=== PATIENT | male | born 1975 | race Caucasian/White ===

== ENCOUNTER → 2017-09-29 18:26 | Outpatient (CLI) | payer MEDICAID ==
[~2017-09-29 18:26] MED LIST: MOBIC7.5 MG PO; PRINIVIL20 MG PO; ZYRTEC10 MG PO
[2017-09-29 20:53] LABS: CHOL - HDL RATIO 2.6 ratio (2.3-4.9); LDL-HDL RATIO 1.3 ratio (1.5-3.5)
[2017-10-26 07:31] VITALS: BMI 25.8
== END | disposition home or self-care (01) ==
LOC: D.LABREF 18:26
PROVIDERS: Internal Medicine Cardiovascular Disease
DX: R07.9 Chest pain, unspecified (principal); I10 Essential (primary) hypertension; R06.00 Dyspnea, unspecified; R00.2 Palpitations

== ENCOUNTER → 2017-10-14 10:02 | Outpatient (CLI) | payer MEDICAID ==
--- NOTE | ~2017-10-14 | EC ---
PATIENT:DC FARAH DATE OF SERVICE: 10/14/17 SEX: M MEDICAL RECORD: [id number] DATE OF : 73 LOCATION:[facility] AGE OF PATIENT: 42 ADMISSION DATE: 10/14/17 REFERRING PHYSICIAN: INTERPRETING PHYSICIAN: SCARLET SMITH MD ECHOCARDIOGRAM REPORT ECHO CHARGES 4 ECHO COMPLETE Date: 10/14 CLINICAL DIAGNOSIS: CHEST PAIN,PALPITATIONS/HTN ECHOCARDIOGRAPHIC MEASUREMENTS (adult normal given) AC root (d.<3.7cm) 3.8 cm LV Septum d (<1.2 cm> 1.4 cm Valve Excursion 1.8 cm LV Septum (systole) 1.6 cm Left Atria (s.<4.0cm> 3.1 cm LVPW d(<1.2cm) 1.3 cm RV (d.<2.3cm) 3.9 cm LVPW (sytole) 1.5 cm LV diastole(<5.6CM) 4.1 cm MV E-F(>70mm/sec) cm LV systole 2.3 cm LVOT Diameter 1.7 cm MV exc.(>10mm) 1.4 cm Est.ejection fraction (50-75%) % DOPPLER: LVIT cm/sec A 81.0 cm/sec E 93.0 cm/sec LA cm/sec RVSP 29 mmHg LVOT 110 cm/sec AOP1/2T m/s Asc. Ao 175 cm/sec RVOT 94 cm/sec RA cm/sec PA 140 cm/sec AV Gradient Peak 12.25mmHg AV Mean 7.21 mmHg AV Area 1.5 cm MV Gradient Peak 4.02 mmHg MV Mean 1.66 mmHg MV Area cm COMMENTS: Lithographed Plate Inspector: 2 BRANDON GALINDO Bilingual Student Tutor: 4 Dr. Smith TAPE# PACS Pericardial Effusion N DATE OF SERVICE: PROCEDURE: Transthoracic echocardiogram. FINDINGS: 1. Left ventricle shows evidence of left ventricular hypertrophy that is mild. Inflow characteristics are normal to possibly pseudonormal. 2. The ejection fraction is 65%. 3. Left atrium is normal size, normal function. 4. The aortic valve is normal. ECHOCARDIOGRAM REPORT [id number] DC FARAH 5. The right ventricle is normal. 6. The right atrium is normal. 7. The mitral valve is normal. 8. The tricuspid valve is normal. 9. The pericardium is normal. 10. The pulmonic valve is normal. CONCLUSIONS: The patient has evidence of mild left ventricular hypertrophy, but otherwise normal echocardiogram for age. TRANSINT:[id number] Voice Confirmation ID: [id number] DOCUMENT ID: [id number] SCARLET SMITH MD at 0942 CC: [id number] DICTATION DATE: 10/14/17 1131 PEDIATRIC LPN: 10/14/17 1223 DEP CLI 10/14/17 [id number] [place] [address]
[2017-10-26 07:31] VITALS: BMI 25.8
== END | disposition home or self-care (01) ==
LOC: D.ECHO 09-22 13:30
DX: R07.9 Chest pain, unspecified (principal); R00.2 Palpitations; I10 Essential (primary) hypertension

== ENCOUNTER 2017-10-26 07:00 | Outpatient (CLI) | payer MEDICAID ==
[~2017-10-26] VITALS: Ht 162.6 cm; Wt 68.2 kg
--- NOTE | ~2017-10-26 | HEMODYNAMI ---
PATIENT:DC FARAH MEDICAL RECORD: [id number] : 73 LOCATION:[facility] ADMISSION DATE: 10/26/17 Generatedon:10/26/201712:15 Patient name: DC FARAH Patient #: [id number] SSN: DO B: 1975 Date of study: 10/26/2017 Page: Of Hemodynamic Procedure Report Patient Data Patient Demographics Procedure consent was obtained First Name: DC Gender: Male Last Name: GAGAN : 1975 [facility] Initial: R Age: 42 year(s) Patient #: [id number] Race: Unknown Additional ID: [id number] Contact details Address: [address] [place] [address] [place] State: [place] City: [facility] Zip code: [address] Admission Admission Data Admission Date: 10/26/2017 Admission Time: 7:00 Lab Results Lab Result Date: 10/26/2017 Lab Result Time: 0:00 Biochemistry Name Units Result Min Max BUN mg/dl 17 --(---*)-- 7 18 Creatinine mg/dl 1 --(--*-)-- 0.6 1.3 CBC Name Units Result Min Max Hemoglobin g/dl 16.3 --(--*-)-- 13.5 17.5 Procedure Procedure Types Cath Procedure Diagnostic Procedure [facility] w/Coronaries Procedure Description Procedure Date Procedure Date: 10/26/2017 Procedure Start Time: 12:03 Procedure End Time: 12:13 Procedure Staff Name Function Fran Rosa MD Performing Physician Frederic Foley RT Monitor Kajal Beth RT Scrub Russ Lobo RN Nurse Procedure Data Cath Procedure Fluoroscopy Diagnostic fluoroscopy Total fluoroscopy Time: 4.2 time: 4.2 min min Diagnostic fluoroscopy Total fluoroscopy dose: 198 dose: 198 mGy mGy Contrast Material Contrast Material Type Amount (ml) Isovue 300 32 Entry Location Entry Primary Successful Side Size Upsize Upsize Entry Closure Skinner ccessful Closure Location (Fr) 1 (Fr) 2 (Fr) Remarks Device Remarks Radial Right 6 Fr Mechanical artery Short Compression Estimated blood loss: 10 ml Diagnostic catheters Device Type Used For End Catheter Placement DIAGNOSTIC Emilaino 110cm Procedure 5Fr catheter ([id number]) Procedure Complications No complications Procedure Medications Medication Administration Route Dosage Oxygen etCO2 Nasal cannula 2 l/min Heparin Flush Bag added to field 2 bags (1000units/500ml NS) 0.9% NaCl I.V. 100 ml/hr Radial Cocktail added to field 1 syringe (Verapomil 2mg/Nitro 400mcg/Heparin 1500units) Fentanyl I.V. 50 mcg Versed I.V. 1 mg Fentanyl I.V. 50 mcg Versed I.V. 1 mg Fentanyl I.V. 50 mcg Radial Cocktail I.A. 1 syringe (Verapomil 2mg/Nitro 400mcg/Heparin 1500units) Fentanyl I.V. 50 mcg Versed I.V. 1 mg Hemodynamics Rest HGB: 16.3 (g/dl) Heart Rate: 67 (bpm) Pressure Samples Time Site Value (mmHg) Purpose Heart Use Rate(bpm) 12:07 LV 124/-6,7 Snapshot 85 Gradients Valve Time Site Site Mean SEP/DFP Peak To Heart Use 1 2 (mmHg) (sec/min) Peak Rate (mmHg) (bpm) Aortic 12:08 LV AO 81 Snapshots Pre Cath Intra NCS Post Cath Vital Signs Time Heart Resp SPO2 etCO2 NIBP Rhythm Pain Sedation Rate (ipm) (%) (mmHg) (mmHg) Status Level (bpm) 11:52:08 63 16 98 0 131/79(95) NSR 0 (11) 10(A) , No pain 11:56:46 69 17 99 34.5 113/74(85) NSR 0 (11) 10(A) , No pain 12:01:23 72 16 96 34.5 110/60(84) NSR 0 (11) 10(A) , No pain 12:05:57 89 20 94 33.8 116/70(93) NSR 0 (11) 10(A) , No pain 12:10:34 87 17 94 36.8 104/67(83) NSR 0 (11) 9(A) , No pain 12:13:57 81 17 95 33.8 113/68(91) NSR 0 (11) 9(A) , No pain Medications Time Medication Route Dose Verified Delivered Reason Notes Effectiveness by by 11:54:06 Oxygen etCO2 2 l/min Fran Russ Per Nasal Moe Lobo RN physician cannula 11:54:15 Heparin Flush added 2 bags Fran Russ used for Bag to Moe Lobo RN procedure (1000units/500ml field NICHOLAS NS) 11:54:22 0.9% NaCl I.V. 100 Fran Russ Per ml/hr Moe Lobo RN physician 11:54:31 Radial Cocktail added 1 Fran Russ used for (Verapomil to syringe Moe Lobo RN procedure 2mg/Nitro field NICHOLAS 400mcg/Heparin 1500units) 11:55:48 Fentanyl I.V. 50 mcg Fran Russ for sedation Moe Lobo RN, MD 11:55:55 Versed I.V. 1 mg Fran Russ for sedation Moe Lobo RN, MD 11:58:32 Fentanyl I.V. 50 mcg Fran Russ for sedation Moe Lobo RN, MD 11:58:37 Versed I.V. 1 mg Fran Russ for sedation Moe Lobo RN, MD 12:02:05 Fentanyl I.V. 50 mcg Fran Russ for sedation Moe Lobo RN, MD 12:04:56 Radial Cocktail I.A. 1 Fran Fran for (Verapomil syringe Moe Rosa MD vasodilation 2mg/Nitro 400mcg/Heparin 1500units) 12:05:05 Fentanyl I.V. 50 mcg Fran Russ for sedation Moe Lobo RN, MD 12:08:13 Versed I.V. 1 mg Fran Russ for sedation Moe Lobo RN, MD Procedure Log Time Note 11:20:06 Russ Lobo RN sent for patient. Start room use. 11:36:54 Signed procedure consent form obtained from patient. 11:36:56 Time tracking: Regular hours (M-F 7:00 - 5:00) 11:37:01 Plan of Care:Hemodynamics will remain stable., Cardiac rhythm will remain stable., Comfort level will be maintained., Respiratory function will remain adequate., Patient/ family verbilizes understanding of procedure., Procedure tolerated without complication., Recovers from procedure without complications.. 11:37:19 H&P Date Dictated: 10/14/2017 Within 30 days and on chart., H&P Addendum completed by physician on day of procedure. (MUST COMPLETE FOR ALL OUTPATIENTS). 11::44 Lab Result : BUN 17 mg/dl : Lab Result : Creatinine 1 mg/dl : Lab Result : Hemoglobin 16.3 g/dl 11::38 Patient received from Pre/Post Procedure Room to CCL 1 Alert and oriented. Tansferred to table in Supine position. 11:43:39 Warm blankets applied, and patrick hugger turned on for patient comfort. 11::39 Correct patient and procedure confirmed by team. 11:43:40 ECG and BP/O2 sat monitors applied to patient. 11:51:21 Vital chart was started 11:54:06 Oxygen 2 l/min etCO2 Nasal cannula was administered by Russ Lobo RN; Per physician; 11:54:15 Heparin Flush Bag (1000units/500ml NS) 2 bags added to field was administered by Russ Lobo RN; used for procedure; 11:54:18 Baseline sample Acquired. 11:54:21 Rhythm: sinus rhythm 11:54:22 0.9% NaCl 100 ml/hr I.V. was administered by Russ Lobo RN; Per physician; 11:54:23 Full Disclosure recording started 11:54:24 Pre-procedure instructions explained to patient. 11:54:25 Pre-op teaching completed and patient verbalized understanding. 11:54:27 Family in patients room. 11:54:28 Patient NPO since Midnight. 11:54:30 Is the patient allergic to Iodine/contrast media? No. 11:54:31 Radial Cocktail (Verapomil 2mg/Nitro 400mcg/Heparin 1500units) 1 syringe added to field was administered by Russ Lobo RN; used for procedure; 11:54:32 Is patient on blood thinner?Yes 11:54:35 ACC The patient was administered the following blood thiners within the last 24 hours: ACCPlavix 11:54:38 Patient diabetic? No. 11:54:41 Previous problem with sedation/anesthesia? No ? 11:54:42 Snore? Yes 11:54:43 Sleep apnea? No 11:54:44 Deviated septum? No 11:54:45 Opens mouth fully? Yes 11:54:45 Sticks out tongue? Yes 11:54:47 Airway obstruction? No ? 11:54:53 Dentures? No Lost teeth 11:54:56 Pre procedure: right dorsailis pedis pulse 1+ Palpable, but thready & weak; easily obliterated 11:54:59 Modified Reji's test Ulnar < 7 seconds 11:55:00 Patient pain scale 0/10 ?. 11:55:08 IV patent on arrival in left forearm with 0.9% NaCl at O. 11:55:17 Lab results completed and on chart. 11:55:21 Right Radial & Right Groin area was prepped with chlora-prep and draped in sterile fashion 11:55:22 Alarms reviewed by R. N. 11:55:23 Sharps counted by scrub and verified by R.N. 11:55:24 --------ALL STOP TIME OUT------ 11:55:25 Final Timeout: patient, procedure, and site verified with staff and physician. All members of the team are in agreement. 11:55:27 Right Radial & Right Groin site verified by team. 11:55:31 Physical assessment completed. ASA score P 2 - A patient with mild systemic disease as per Fran Rosa MD. 11:55:34 Sedation plan: IV Moderate Sedation Medication:Versed, Fentanyl 11:55:48 Fentanyl 50 mcg I.V. was administered by Russ Lobo RN; for sedation; 11:55:55 Versed 1 mg I.V. was administered by Russ Lobo RN; for sedation; 11:58:32 Fentanyl 50 mcg I.V. was administered by Russ Lobo RN; for sedation; 11:58:37 Versed 1 mg I.V. was administered by Russ Lobo RN; for sedation; 11:59:32 Use device set Radial Dx or PCI 11:59:35 Tegaderm 4 x 4 (1626W) opened to sterile field. 11:59:36 ACIST Hand Control (69644) opened to sterile field. 11:59:36 ACIST Manifold (93573) opened to sterile field. 11:59:37 ACIST Syringe (21160) opened to sterile field. 11:59:38 Medline Cath Pack ([id number]) opened to sterile field. 11:59:38 Bag Decanter () opened to sterile field. 11:59:39 DIAGNOSTIC WIRE .035 260cm J wire (422528) opened to sterile field. 11:59:44 MBrace Wrist Support ([id number]) opened to sterile field. 12:02:05 Fentanyl 50 mcg I.V. was administered by Russ Lobo RN; for sedation; 12:02:57 SHEATH 6Fr Prelude Radial ([id number]) opened to sterile field. 12:03:38 Procedure started. 12:03:44 Local anesthetic to right radial artery with Lidocaine 2% by Fran Rosa MD.INITIAL ACCESS ONLY 12:04:07 A 6 Fr Short sheath was inserted into the Right Radial artery 12:04:42 A DIAGNOSTIC Emiliano 110cm 5Fr catheter ([id number]) was advanced over the wire and used for Procedure. 12:04:56 Radial Cocktail (Verapomil 2mg/Nitro 400mcg/Heparin 1500units) 1 syringe I.A. was administered by Fran Rosa MD; for vasodilation; 12:05:05 Fentanyl 50 mcg I.V. was administered by Russ Lobo RN; for sedation; 12:08:11 LV angiography performed. 12:08:13 Versed 1 mg I.V. was administered by Russ Lobo RN; for sedation; 12:08:13 LV gram done using ORELLANA 12:08:27 EF : 60 % 12:08:38 LV hemodynamics recorded. 12:08:44 Injector settings: Ml/sec: 12, Volume: 8, 12:08:52 RCA angiography performed. 12:11:18 LCA angiography performed. 12:12:06 Catheter removed. 12:12:11 TR BAND Standard ([id number]) opened to sterile field. 12:12:22 Sheath removed intact; hemostasis achieved with Mechanical Compression to the Right Radial artery. 12:12:30 Procedure ended.(Physican Out) 12:12:44 Fluoroscopy time 04.20 minutes. 12:12:53 Fluoroscopy dose: 198 mGy 12:12:53 Flurop Dose total: 198 12:12:58 Contrast amount:Isovue 300 32ml. 12:13:03 Sharps counted by scrub and verified by R.N. 12:13:06 TR band inflated with 10cc of air. 12:13:07 Insertion/operative site no bleeding no hematoma. 12:13:09 Post Procedure Pulses reassessed and unchanged 12:13:12 Post-procedure physical assessment completed. ASA score P 2 - A patient with mild systemic disease as per Fran Rosa MD. 12:13:17 Post procedure rhythm: unchanged. 12:13:20 Estimated blood loss: 10 ml 12:13:22 Post procedure instruction explained to patient.Patient verbalizes understanding. 12:13:22 Patient needs reinforcement of post procedure teaching. 12:13:26 Procedure and supply charges have been captured, reviewed, submitted and are correct. 12:13:30 Procedure Complication : No complications 12:13:46 Vital chart was stopped 12:13:46 See physician's report for complete and final results. 12:13:48 Report given to Pre/Post Procedure Room. 12:13:51 Patient transfered to Pre/Post Procedure Room with Stretcher. 12:13:55 Procedure ended. 12:13:55 Full Disclosure recording stopped 12:14:49 End room use (Document Last) Device Usage Item Name Manufacture Quantity Catalog Number Hospital Part Current M inimal Lot# / Charge Number Stock Stock Serial# Code Tegaderm 4 x 4 3M 1 [id number] 191989 380402 5 (1626W) ACIST Hand Acist 1 04258 409593 712411 762542 5 Control (06547) [employer] ACIST Manifold Acist 1 09296 456132 239600 657075 5 (85941) [employer] ACIST Syringe Acist 1 85643 833781 759107 611817 2 0 (76437) [employer] Medline Cath Cardinal 1 [id number] 484618 07560 718665 5 Pack Health ([id number]) Bag Decanter Microtek 1 2001S 792671 98532 771895 5 (2001S) Medical Inc. DIAGNOSTIC WIRE St Donnie 1 871582 552196 548001 838622 3 0 .035 260cm J wire (553095) MBrace Wrist Advanced 1 140-0250-00 564506 40830 569845 5 Support Vascular ([id number]) Dynamics SHEATH 6Fr Merit 1 [id number] 748999 639783 944419 5 Prelude Radial Medical ([id number]) DIAGNOSTIC Terumo 1 75-4515 744829 911893 104725 5 Emiliano 110cm 5Fr catheter (661169) TR BAND Terumo 1 [id number] 027470 246122 401544 4 0 Standard ([id number]) Signature Audit Marion Stage Time Signature Unsigned Intra-Procedure 10/26/2017 Frederic Foley 12:15:07 PM RT(R) Signatures Monitor : Frederic Foley RT Signature : Date : Time : [id number] [place] [address]
[2017-10-26] MEDS ORDERED: PRINIVIL20 MG PO (07:22)
[2017-10-26] MEDS ORDERED: ZYRTEC10 MG PO (07:22)
[2017-10-26] MEDS ORDERED: MOBIC7.5 MG PO (07:23)
[2017-10-26 07:31] VITALS: BP 142/84; Ht 162.6 cm; Wt 68.2 kg
[2017-10-26 07:40] LABS: BASOPHILS 0.5 % (0-2); EOSINOPHILS 4.4 % (0-7); HEMATOCRIT 47.2 % (42.0-54.0); HEMOGLOBIN 16.3 g/dL (13.5-17.5); IMMATURE GRANULOCYTES 0.3 % (0-5); LYMPHOCYTES 40.4 % (15-50); MCH 32.8 pg (26.0-34.0); MCHC 34.5 g/dL (31.0-37.0); MEAN PLATELET VOLUME 11.1 fL (7.4-10.4); MONOCYTES 11.6 % (2-11); NEUTROPHILS 42.8 % (40-80); PLATELET COUNT 193 10x3/uL (130-400); RBC 4.97 10x6/uL (4.20-6.10); RDW 13.4 % (11.5-14.5)
[2017-10-26 07:57] LABS: CALC OSMOLALITY 277 mosm/kg (275-300); CALCIUM 9.6 mg/dL (8.5-10.1); CARBON DIOXIDE 28.4 mmol/L (21.0-32.0); CHLORIDE - SERUM 102 mmol/L (98-107); GLUCOSE 102 mg/dL (74-106); POTASSIUM - SERUM 4.4 mmol/L (3.5-5.1); SODIUM 138 mmol/L (136-145); UREA NITROGEN 17 mg/dL (7-18); eGFR NON AFRICAN AMERICAN 87 mL/min (90-120)
== END 2017-10-26 15:00 | disposition home or self-care (01) ==
LOC: D.CATH 07:00
PROVIDERS: Internal Medicine Cardiovascular Disease
DX: R07.9 Chest pain, unspecified (principal); Z01.812 Encounter for preprocedural laboratory examination